=== PATIENT | female | born 1995 | race Caucasian/White ===

== ENCOUNTER 2017-12-22 14:35 | Emergency (ER) | payer BC ==
[2017-12-22 15:07] LABS: BASOPHILS % (AUTO) 0.5 %; EOSINOPHILS # (AUTO) 0.2 10^3/uL (0.0-0.7); EOSINOPHILS % (AUTO) 3.2 %; LYMPHOCYTES # (AUTO) 2.2 10^3/uL (1.5-3.5); LYMPHOCYTES % (AUTO) 28.9 %; MEAN CORPUSCULAR HEMOGLOBIN 28.5 pg (27.0-31.0); MEAN CORPUSCULAR HGB CONC 33.7 g/dL (32.0-36.0); MEAN CORPUSCULAR VOLUME 84.7 fL (81.0-99.0); MEAN PLATELET VOLUME 8.3 fL (7.9-10.8); MONOCYTES # (AUTO) 0.6 10^3/uL (0.0-1.0); MONOCYTES % (AUTO) 8.2 %; NEUTROPHILS # (AUTO) 4.4 10^3/uL (1.5-6.6); NEUTROPHILS % (AUTO) 59.2 %; PLT - PLATELET COUNT 207 10^3/uL (130-450); RED BLOOD COUNT 4.92 10^6/uL (4.20-5.40); RED CELL DISTRIBUTION WIDTH 14.4 % (12.0-15.0); WHITE BLOOD COUNT 7.5 x10^3/uL (4.8-10.8)
[2017-12-22 15:22] LABS: ALBUMIN/GLOBULIN RATIO 1.8 (1.0-2.2); BILIRUBIN,TOTAL 0.6 mg/dL (0.2-1.0); CREATININE 0.7 mg/dL (0.4-1.0); TOTAL PROTEIN 7.8 g/dL (6.7-8.2)
--- NOTE | 2017-12-22 15:33 | ED Physician Documentation ---
PD HPI DYSPNEA - Stated complaint Stated Complaint: CHEST PAINS,LEFT ARM PAIN - Chief complaint Chief Complaint: Cardiac - History obtained from History obtained from: Patient - History of Present Illness Timing - onset: How many weeks ago (1) Timing - onset during: Rest Timing - details: Waxing and waning Associated symptoms: Chest pain / discomfort. No: Fever, Cough - Additional information Additional information: The patient is 22-year-old female who presents with left-sided chest discomfort that she describes as a pressure, that has been waxing and waning for the past week. Today she had tingling sensation in her left upper extremity, which has since resolved. She denies cough or fever, but has had dyspnea and "sweats." She reports headache and "dizziness." She denies abdominal pain, vomiting, or sore throat. She reports having similar symptoms intermittently in the past, usually when "stressed." However her symptoms usually do not last this long. She has never smoked cigarettes. She is 2 weeks status post D&C. Review of Systems Constitutional: denies: Fever Nose: denies: Congestion Throat: denies: Sore throat Cardiac: reports: Chest pain / pressure Respiratory: reports: Dyspnea. denies: Cough GI: denies: Abdominal Pain, Nausea, Vomiting : denies: Dysuria Skin: denies: Rash Musculoskeletal: denies: Back pain, Extremity swelling Neurologic: reports: Headache PD PAST MEDICAL HISTORY - Past Medical History Past Medical History: Yes Cardiovascular: Hypertension Neuro: Motion sickness Endocrine/Autoimmune: None [employer] MACHINES [employer]ER: Miscarriage(s) - Past Surgical History Past Surgical History: Yes /[employer]ICE MACHINES TE[employer]ER: Dilation and currettage HEENT: Tonsil/Adenoidectomy - Present Medications Home Medications: Ambulatory Orders Medication Instructions Recorded Confirmed Labetalol [Trandate] 100 mg PO DAILY 12/22/17 12/22/17 Naproxen [Naprosyn] 500 mg PO BID PRN #20 tablet 12/22/17 raNITIdine HCl [Ranitidine HCl] 150 mg PO BID #30 tablet 12/22/17 - Allergies Allergies/Adverse Reactions: Allergies Allergy/AdvReac Type Severity Reaction Status Date / Time No Known Drug Allergies Allergy Verified 12/22/17 14:47 - Social History Does the pt smoke?: No Smoking Status: Never smoker Does the pt drink ETOH?: Yes Does the pt have substance abuse?: No PD ED PE NORMAL - Vitals Vital signs reviewed: Yes (Initially hypertensive.) - General General: Alert and oriented X 3, Well developed/nourished, Other (Has a worried appearance on her face.) - HEENT HEENT: Atraumatic, Ears normal, Moist mucous membranes, Pharynx benign - Neck Neck: Supple, no meningeal sign, No adenopathy, No JVD - Cardiac Cardiac: RRR, No murmur - Respiratory Respiratory: No respiratory distress, Clear bilaterally, Other (No chest wall tenderness to palpation.) - Abdomen Abdomen: Soft, Non tender, Non distended, No organomegaly, Other (Scaphoid abdomen.) - Back Back: No CVA TTP - Derm Derm: No rash - Extremities Extremities: No edema, No calf tenderness / cord - Neuro Neuro: Alert and oriented X 3, No motor deficit, Normal speech Results - Vitals Vitals: Oxygen O2 Source Room air - EKG (time done) 14:44 Rate: Rate (enter#) (90) Rhythm: NSR Reeders: Normal Intervals: Normal TN QRS: Normal Ischemia: Normal ST segments Computer interpretation: Agree with computer - Labs Labs: Laboratory Tests 12/22/17 12/22/17 12/22/17 15:01 15:01 15:01 WBC 7.5 RBC 4.92 Hgb 14.0 Hct 41.7 MCV 84.7 MCH 28.5 MCHC 33.7 RDW 14.4 Plt Count 207 MPV 8.3 Neut # 4.4 Lymph # 2.2 [place] # 0.6 Eos # 0.2 Baso # 0.0 Absolute Nucleated RBC 0.01 Nucleated RBC % 0.2 D-Dimer Sodium 136 Potassium 4.0 Chloride 99 L Carbon Dioxide 25 Anion Gap 12.0 BUN 10 Creatinine 0.7 Estimated GFR (MDRD) 103 Glucose 94 Calcium 10.0 Total Bilirubin 0.6 AST 32 ALT 29 Alkaline Phosphatase 64 Troponin I < 0.04 Total Protein 7.8 Albumin 5.0 Globulin 2.8 Albumin/Globulin Ratio 1.8 Lipase 28 12/22/17 15:01 WBC RBC Hgb Hct MCV MCH MCHC RDW Plt Count MPV Neut # Lymph # [place] # Eos # Baso # Absolute Nucleated RBC Nucleated RBC % D-Dimer 228.9 Sodium Potassium Chloride Carbon Dioxide Anion Gap BUN Creatinine Estimated GFR (MDRD) Glucose Calcium Total Bilirubin AST ALT Alkaline Phosphatase Troponin I Total Protein Albumin Globulin Albumin/Globulin Ratio Lipase - Rads (name of study) CXR Radiology: Prelim report reviewed, EMP read contemporaneously, See rad report ( No acute radiographic cardiopulmonary abnormality.) PD MEDICAL DECISION MAKING - ED course Complexity details: reviewed results, re-evaluated patient, considered differential, d/w patient, d/w family ED course: The patient's presentation is most consistent with gastroesophageal reflux disease. Her presentation does not suggest cardiac etiology, and her EKG and troponin are normal. Chest x-ray reveals no evidence of pneumonia, pneumothorax , or other radiographic intrathoracic abnormality. I doubt pulmonary embolus, with a normal d-dimer. Initially her symptoms were thought to be caused by pleurodynia, and Naprosyn 500 mg was administered orally. However, later the patient complained of slight discomfort with swallowing, which suggested that a more likely diagnosis of gastroesophageal reflux disease. GI cocktail was administered, and it completely resolved the patient's discomfort. She is being discharged with prescription for ranitidine. I discussed with her and her the diagnosis, symptomatic treatment and outpatient follow-up, as well as potentially worrisome signs or symptoms that should prompt reevaluation in the emergency department. Departure - Departure Disposition: 01 Home, Self Care Clinical Impression: Pleuritic chest pain GERD (gastroesophageal reflux disease) Qualifiers: Esophagitis presence: esophagitis presence not specified Qualified Code(s): K21.9 - Gastro-esophageal reflux disease without esophagitis Condition: Stable Instructions: ED GERD, ED Chest Pain Pleurisy Follow-Up: Kate Vázquez PA [Physician No Access] - Prescriptions: Naproxen [Naprosyn] 500 mg PO BID PRN #20 tablet PRN Reason: Pain raNITIdine HCl [Ranitidine HCl] 150 mg PO BID #30 tablet Comments: You can take Naprosyn twice daily as prescribed. Follow up with your primary physician within 1-2 weeks. Call to schedule appointment. Return to the emergency department if you develop increasing pain, increasing shortness of breath, or otherwise worsening symptoms. Discharge Date/Time: 12/22/17 16:59
--- NOTE | 2017-12-22 15:35 | XRAY Report ---
EXAM: CHEST RADIOGRAPHY EXAM DATE: 12/22/2017 03:23 PM. CLINICAL HISTORY: CP. COMPARISON: None. TECHNIQUE: 2 views. FINDINGS: Lungs/Pleura: No focal opacities evident. No pleural effusion. No pneumothorax. Normal volumes. Mediastinum: Heart and mediastinal contours are unremarkable. Other: Prior right clavicular fracture IMPRESSION: No acute radiographic cardiopulmonary process [facility] Referring Provider Line: [phone] SITE ID: [id number]
[2017-12-22] MEDS ORDERED: NAPROXEN 250 MG TABLET PO STA (15:43)
[2017-12-22] MEDS ORDERED: LIDOCAINE VISCOUS 2% 15 ML UDC MM STA (15:58)
[2017-12-22] MEDS ORDERED: MAG HYDROX/AL HYDROX/SIMETH 30 ML UDC PO STA (15:58)
[2017-12-22] MEDS ORDERED: PHENobarb/HYOSCY/ATROPINE/SCOP 5 ML SYRINGE PO STA (15:58)
[2017-12-22 16:52] VITALS: BP 153/103
== END 2017-12-22 16:59 | disposition home or self-care (01) ==
LOC: ED 14:35
DX: R07.9 Chest pain, unspecified (principal); K21.9 Gastro-esophageal reflux disease without esophagitis; I10 Essential (primary) hypertension
CPT/HCPCS: 71046; 80053; 83690; 84484; 85025; 85379; 93005; 99284; A9270; 36415